=== PATIENT | female | born 1970 | race American Indian/Alaskan Native ===

== ENCOUNTER 2020-04-04 15:48 | Emergency (ER) | payer MEDICARE ==
[2020-04-04 16:07] VITALS: BP 143/101
--- NOTE | 2020-04-04 16:08 | Event Note ---
ED Screening Note ED Screening Note: Patient is a patient at [facility]. She comes in complaining of left lower extremity pain. She has a palpable DP pulse bilaterally. She states that [facility] will not allow her to wear her brace on her leg which she wears due to a prior CVA. They sent her here to be confirmed that she does not have a D VT. This initial assessment/diagnostic orders/clinical plan/treatment(s) is/are subject to change based on patients health status, clinical progression and re- assessment by fellow clinical providers in the ED. Further treatment and workup at subsequent clinical providers discretion. Patient/guardian urged not to elope from the ED as their condition may be serious if not clinically assessed and managed. Initial orders include: RO DVT
--- NOTE | 2020-04-04 17:00 | Vascular Lab Report ---
. DUPLEX DOPPLER LOWER EXTREMITY VEINS, LEFT INDICATION / CLINICAL INFORMATION: LLE PAIN. TECHNIQUE: Duplex doppler imaging was performed through the veins of the left lower extremity using venous compr ession and other maneuvers. COMPARISON: None available. FINDINGS: LEFT COMMON FEMORAL VEIN: Negative. LEFT FEMORAL VEIN: Negative. LEFT POPLITEAL VEIN: Negative. LEFT CALF VEINS: Negative. ADDITIONAL FINDINGS: None. IMPRESSION: 1. No sonographic evidence for DVT in the left lower extremity. Signer Name: Ryan Carl MD Signed: 04/04/2020 4:56 PM Workstation Name: [id number]
--- NOTE | 2020-04-04 17:18 | Emergency Department Report ---
ED Lower Extremity HPI - General Chief Complaint: Extremity Problem,Nontraumatic Stated Complaint: LT LEG DISCOMFORT Time Seen by Provider: 04/04/20 16:08 Source: patient Mode of arrival: Wheelchair Limitations: Physical Limitation - History of Present Illness Initial Comments: This is a 49-year-old female healthy who presents the ED complaining of left leg pain x1 week. Patient states that pain began about a week ago and got worse today. Patient states that she normally uses walking stick at home and is currently going through physical therapy with her doctor. Patient states that she has been staying at [facility] for about a month and has been unable to use her walking stick. Patient states that this may have been worsening her left leg pain. Patient states pain is localized to the left anterior aspect of her leg with no radiation. Patient rates pain a 7 out of 10 intensity at its worse. Patient states that she was sent in from [facility] to be evaluated for the left leg pain. Injury: Leg: Left Place: home Severity: moderate Severity scale (0 -10): 7 - Related Data Home Medications Medication Instructions Recorded Confirmed Last Taken Aspirin BABY CHEW TAB 81 mg PO DAILY 06/15/15 06/15/15 08/21/15 Levothyroxine 1 tab PO DAILY 06/15/15 06/15/15 08/21/15 Lexapro 1 tab PO DAILY 06/15/15 06/15/15 08/21/15 Lisinopril 1 tab PO DAILY 06/15/15 06/15/15 08/22/15 05:00 Lyrica 1 tab PO DAILY 06/15/15 06/15/15 08/21/15 Pravastatin 1 tab PO DAILY 06/15/15 06/15/15 08/21/15 Xanax TAB 1 tab PO DAILY 06/15/15 06/15/15 08/21/15 Wellbutrin SR 150 mg PO BID 08/22/15 08/22/15 08/21/15 Previous Rx's Medication Instructions Recorded Last Taken Type Paige Gandhi [Navin Gandhi] 75 mg PO BID #40 tablet 04/04/20 Unknown Rx Allergies Allergy/AdvReac Type Severity Reaction Status Date / Time No Known Allergies Allergy Verified 06/15/15 07:34 ED Review of Systems ROS: Stated complaint: LT LEG DISCOMFORT Other details as noted in HPI Comment: All other systems reviewed and negative ED Past Medical Hx - Past Medical History Hx Hypertension: Yes Hx GERD: Yes - Social History Smoking Status: Current Every Day Smoker - Medications Home Medications: Home Medications Medication Instructions Recorded Confirmed Last Taken Type Aspirin BABY CHEW TAB 81 mg PO DAILY 06/15/15 06/15/15 08/21/15 History Levothyroxine 1 tab PO DAILY 06/15/15 06/15/15 08/21/15 History Lexapro 1 tab PO DAILY 06/15/15 06/15/15 08/21/15 History Lisinopril 1 tab PO DAILY 06/15/15 06/15/15 08/22/15 05:00 History Lyrica 1 tab PO DAILY 06/15/15 06/15/15 08/21/15 History Pravastatin 1 tab PO DAILY 06/15/15 06/15/15 08/21/15 History Xanax TAB 1 tab PO DAILY 06/15/15 06/15/15 08/21/15 History Wellbutrin SR 150 mg PO BID 08/22/15 08/22/15 08/21/15 History Diclofenac [Navin Gandhi] 75 mg PO BID #40 tablet 04/04/20 Unknown Rx ED Physical Exam - General Limitations: Physical Limitation General appearance: alert, in no apparent distress - Head Head exam: Present: atraumatic, normocephalic - Eye Eye exam: Present: normal appearance - ENT ENT exam: Present: mucous membranes moist - Neck Neck exam: Present: normal inspection, full ROM - Respiratory Respiratory exam: Present: normal lung sounds bilaterally. Absent: respiratory distress - Cardiovascular Cardiovascular Exam: Present: regular rate, normal rhythm. Absent: systolic murmur, diastolic murmur, rubs, gallop - GI/Abdominal GI/Abdominal exam: Present: soft, normal bowel sounds - Extremities Exam Extremities exam: Present: normal inspection, full ROM, normal capillary refill. Absent: tenderness, pedal edema, joint swelling, calf tenderness - Expanded Lower Extremity Exam Left Knee exam: Present: full ROM. Absent: tenderness, swelling, abrasion Lower Leg exam: Present: normal inspection, full ROM. Absent: tenderness, swelling, abrasion, deformity, palpable cord, Micky's sign Ankle exam: Present: normal inspection, full ROM. Absent: tenderness, swelling, deformity Foot/Toe exam: Present: normal inspection, full ROM. Absent: tenderness, swelling, abrasion - Back Exam Back exam: Present: normal inspection - Neurological Exam Neurological exam: Present: alert, oriented X3 - Psychiatric Psychiatric exam: Present: normal affect, normal mood - Skin Skin exam: Present: warm, dry, intact, normal color. Absent: rash ED Course Vital Signs 04/04/20 16:04 Temperature 97.8 F Pulse Rate 83 Respiratory 20 Rate Blood Pressure 143/101 O2 Sat by Pulse 98 Oximetry ED Lower Extremity MDM - Radiology Data Radiology results: report reviewed, image reviewed . DUPLEX DOPPLER LOWER EXTREMITY VEINS, LEFT INDICATION / CLINICAL INFORMATION: LLE PAIN. TECHNIQUE: Duplex doppler imaging was performed through the veins of the left lower extremity using venous compression and other maneuvers. COMPARISON: None available. FINDINGS: LEFT COMMON FEMORAL VEIN: Negative. LEFT FEMORAL VEIN: Negative. LEFT POPLITEAL VEIN: Negative. LEFT CALF VEINS: Negative. ADDITIONAL FINDINGS: None. IMPRESSION: 1. No sonographic evidence for DVT in the left lower extremity. Signer Name: Michelle Rose MD Signed: 04/04/2020 4:56 PM Workstation Name: [id number] Transcribed By: JS Dictated By: MICHELLE ROSE MD Electronically Authenticated By: MICHELLE ROSE MD Signed Date/Time: 04/04/20 165 Doppler studies negative for DVT - Medical Decision Making 49-year-old female presents with leg pain most likely due to musculoskeletal strain/sprain Doppler studies was negative for DVT. Patient able to ambulate with mild limp on the left side. Evaluation shows no swelling, erythema or any other abnormalities as noted in note. Discussed with patient to follow-up with the physical therapist. Discussed with patient also referrals for neurologist. Discussed with patient if worsening pain she may return to the ED immediately. Patient understand instructions she is in no acute distress at this time. Critical care attestation.: If time is entered above; I have spent that time in minutes in the direct care of this critically ill patient, excluding procedure time. ED Disposition Clinical Impression: Muscle strain of left lower leg Disposition: DC-01 TO HOME OR SELFCARE Is pt being admited?: No Does the pt Need Aspirin: No Condition: Stable Instructions: Muscle Strain, Rann-if-Sejd, Hamstring Strain, How to Use Cold Therapy, Hamstring Strain Rehab-SportsMed Additional Instructions: Make sure to follow up with the primary care physician as discussed. Take all your medications as you've been prescribed. If you have any worsening symptoms or develop new symptoms please return to ED immediately. Prescriptions: Diclofenac [Navin Gandhi] 75 mg PO BID #40 tablet Referrals: RIK GLASGOW MD [Staff Physician] - 3-5 Days [facility] [Provider Group] - 3-5 Days [facility] [Provider Group] - 3-5 Days [facility] [Outside] - 3-5 Days Forms: Work/School Release Form(ED) Time of Disposition: 17:27
== END 2020-04-04 20:30 | disposition home or self-care (01) ==
LOC: ED 15:48
DX: S86.912A Strain of unspecified muscle(s) and tendon(s) at lower leg level, left leg, initial encounter (principal); I10 Essential (primary) hypertension; K21.9 Gastro-esophageal reflux disease without esophagitis; F17.200 Nicotine dependence, unspecified, uncomplicated; Z79.899 Other long term (current) drug therapy; X58.XXXA Exposure to other specified factors, initial encounter; Y93.89 Activity, other specified; Y92.009 Unspecified place in unspecified non-institutional (private) residence as the place of occurrence of the external cause; Y99.8 Other external cause status

== ENCOUNTER 2020-06-16 07:39 | Emergency (ER) | payer MEDICARE ==
--- NOTE | 2020-06-16 08:55 | Emergency Department Report ---
ED Fall HPI - General Chief Complaint: Extremity Injury, Lower Stated Complaint: RIGHT ANKLE PAIN Time Seen by Provider: 06/16/20 08:51 Source: patient, EMS Mode of arrival: Wheelchair - History of Present Illness Initial Comments: 50-year-old -[place] Citizen female presents to the emergency room complaining of right ankle injury. Patient states she fell down the stairs about 7 PM last night. States that she fell down about 7 stairs. She denies hitting her head no loss of consciousness no nausea no vomiting. Patient is taking nothing for pain. Patient states that she is sleepy secondary to her night medications of lorazepam Lyrica Xanax. She is followed by Dr. Lavon Castrejon. States she has an appointment today but trying to cancel it. Patient states that she put a ankle brace on her right ankle to help her ambulate. She states that when she tried to walk she noticed that she could not care for came to the ER to be evaluated. MD Complaint: fall Onset/Timin -: hour(s) Fall From: standing, down stairs (#) (7) Fall Witnessed: yes, by bystander Place Fall Occurred: home Loss of Consciousness: none Prolonged Down Time?: no Symptoms Prior to Fall: none Location - Extremities: Right: Ankle Severity scale (0 -10): 9 Quality: aching Associated Symptoms: denies - Related Data Home Medications Medication Instructions Recorded Confirmed Last Taken Aspirin BABY CHEW TAB 81 mg PO DAILY 06/15/15 06/15/15 08/21/15 Levothyroxine 1 tab PO DAILY 06/15/15 06/15/15 08/21/15 Lexapro 1 tab PO DAILY 06/15/15 06/15/15 08/21/15 Lisinopril 1 tab PO DAILY 06/15/15 06/15/15 08/22/15 05:00 Lyrica 1 tab PO DAILY 06/15/15 06/15/15 08/21/15 Pravastatin 1 tab PO DAILY 06/15/15 06/15/15 08/21/15 Xanax TAB 1 tab PO DAILY 06/15/15 06/15/15 08/21/15 Wellbutrin SR 150 mg PO BID 08/22/15 08/22/15 08/21/15 Previous Rx's Medication Instructions Recorded Last Taken Type Paige Gandhi [Navin Gandhi] 75 mg PO BID #40 tablet 04/04/20 Unknown Rx traMADoL [Ultram 50 MG tab] 50 mg PO Q6HR PRN #12 tablet 06/16/20 Unknown Rx Allergies Allergy/AdvReac Type Severity Reaction Status Date / Time No Known Allergies Allergy Verified 06/15/15 07:34 ED Review of Systems ROS: Stated complaint: RIGHT ANKLE PAIN Other details as noted in HPI Comment: All other systems reviewed and negative ED Past Medical Hx - Past Medical History Previous Medical History?: Yes Hx Hypertension: Yes Hx CVA: Yes (left sided deficit) Hx GERD: Yes - Social History Smoking Status: Current Every Day Smoker - Medications Home Medications: Home Medications Medication Instructions Recorded Confirmed Last Taken Type Aspirin BABY CHEW TAB 81 mg PO DAILY 06/15/15 06/15/15 08/21/15 History Levothyroxine 1 tab PO DAILY 06/15/15 06/15/15 08/21/15 History Lexapro 1 tab PO DAILY 06/15/15 06/15/15 08/21/15 History Lisinopril 1 tab PO DAILY 06/15/15 06/15/15 08/22/15 05:00 History Lyrica 1 tab PO DAILY 06/15/15 06/15/15 08/21/15 History Pravastatin 1 tab PO DAILY 06/15/15 06/15/15 08/21/15 History Xanax TAB 1 tab PO DAILY 06/15/15 06/15/15 08/21/15 History Wellbutrin SR 150 mg PO BID 08/22/15 08/22/15 08/21/[address] [Navin Gandhi] 75 mg PO BID #40 tablet 04/04/20 Unknown Rx traMADoL [Ultram 50 MG tab] 50 mg PO Q6HR PRN #12 tablet 06/16/20 Unknown Rx ED Physical Exam - General Limitations: Physical Limitation General appearance: alert, appears intoxicated - Head Head exam: Present: atraumatic, normocephalic - Eye Eye exam: Present: normal appearance - ENT ENT exam: Present: mucous membranes moist - Neck Neck exam: Present: normal inspection, full ROM - Respiratory Respiratory exam: Absent: accessory muscle use - Expanded Lower Extremity Exam Right Upper Leg exam: Present: normal inspection, full ROM Knee exam: Present: normal inspection, full ROM Lower Leg exam: Present: normal inspection, full ROM Ankle exam: Present: tenderness Foot/Toe exam: Present: tenderness, swelling Neuro vascular tendon exam: Present: no vascular compromise - Back Exam Back exam: Present: normal inspection, full ROM - Neurological Exam Neurological exam: Present: alert, oriented X3 - Psychiatric Psychiatric exam: Present: normal affect, normal mood - Skin Skin exam: Present: warm, dry, intact, normal color. Absent: rash ED Course Vital Signs 06/16/20 07:48 Temperature 98.6 F Pulse Rate 86 Respiratory 17 Rate Blood Pressure 120/86 [Right] O2 Sat by Pulse 100 Oximetry ED Medical Decision Making - Medical Decision Making 50-year-old -[place] Citizen female presents to the emergency room complaining of right ankle injury. Patient states she fell down the stairs about 7 PM last night. States that she fell down about 7 stairs. She denies hitting her head no loss of consciousness no nausea no vomiting. Patient is taking nothing for pain. Patient states that she is sleepy secondary to her night medications of lorazepam Lyrica Xanax. She is followed by Dr. Lavon Castrejon. States she has an appointment today but trying to cancel it. Patient states that she put a ankle brace on her right ankle to help her ambulate. She states that when she tried to walk she noticed that she could not care for came to the ER to be evaluated. Radiologist reports suspected calcaneus fracture of the right lower extremity. Patient be placed in a posterior splint. Nursing staff states that patient is not able to bear weight as she has had a stroke affecting her left side and now she has a right lower extremity fracture. Patient will need to be transported via EMS home. Critical care attestation.: If time is entered above; I have spent that time in minutes in the direct care of this critically ill patient, excluding procedure time. ED Disposition Clinical Impression: Right calcaneal fracture, Fall Disposition: DC- TO HOME OR SELFCARE Is pt being admited?: No Does the pt Need Aspirin: No Condition: Stable Additional Instructions: X-ray of right foot shows a calcaneus fracture which is the heel of your foot. Is very important you keep the splint on and follow-up with orthopedic in the next 5 to 7 days. Pain medication as needed. Be sure to eat and drink when taking medication. Prescriptions: traMADoL [Ultram 50 MG tab] 50 mg PO Q6HR PRN #12 tablet PRN Reason: Pain Referrals: PRIMARY CAREMD [Primary Care Provider] - 3-5 Days SRINATH VALENTE MD [Staff Physician] - 3-5 Days Time of Disposition: 17:00
[2020-06-16] MEDS ORDERED: IBUPROFEN 600 MG TAB PO ONE (09:01)
--- NOTE | 2020-06-16 09:46 | XRay Report ---
RIGHT ANKLE 2 VIEWS INDICATION / CLINICAL INFORMATION: Right ankle injury after fall. COMPARISON: None available. FINDINGS: Lack of a complete right ankle series with bilateral oblique views limits this evaluation. BONES and JOINT(S): There is a probable acute nondisplaced fracture of the lateral malleolus without evidence of disruption of the ankle joint. A probable osteochondroma is seen arising posteriorly/late rally along the distal tibial shaft. SOFT TISSUES: Mild edema is present anteriorly and laterally. ADDITIONAL FINDINGS: None. IMPRESSION: Limited exam demonstrating a probable acute fracture of the distal fibula. A complete right ankle ser ies would be helpful for further evaluation. Signer Name: Ritchie Mcdermott MD Signed: 06/16/2020 9:42 AM Workstation Name: [id number]
--- NOTE | 2020-06-16 11:13 | XRay Report ---
LEFT ANKLE 3 VIEWS INDICATION / CLINICAL INFORMATION: Left ankle injury after fall. COMPARISON: Limited left ankle series performed earlier today. FINDINGS: BONES and JOINT(S): No acute fracture or subluxation. A previously suspected fracture of the distal f ibula actually represents changes of remote trauma. Osteochondromas are seen arising from the lateral aspect of the distal tibia. SOFT TISSUES: Mild edema is present along the anterior/lateral aspect of the ankle. ADDITIONAL FINDINGS: None. IMPRESSION: 1. Mild left ankle edema without an acute osseous abnormality. 2. Additional findings as above. Signer Name: Ritchie Mcdermott MD Signed: 06/16/2020 10:46 AM Workstation Name: [id number]
--- NOTE | 2020-06-16 13:15 | XRay Report ---
XR ankle 3+V RT INDICATION / CLINICAL INFORMATION: Ankle trauma. COMPARISON: None available. FINDINGS: BONES/JOINT(S): There is a suspected nondisplaced fracture through the tip of the anterior process of the calcaneus. Chronic bone formation in the distal tibiofibular articulation is likely due to remot e prior high ankle sprain. No fibular fracture is seen. SOFT TISSUES: No significant abnormality. ADDITIONAL FINDINGS: None. Signer Name: Bakari Luna MD Signed: 06/16/2020 1:10 PM Workstation Name: [id number]
[2020-06-16 21:36] VITALS: BP 108/76
== END 2020-06-16 21:35 | disposition home or self-care (01) ==
LOC: ED 07:39
DX: S92.024A Nondisplaced fracture of anterior process of right calcaneus, initial encounter for closed fracture (principal); I10 Essential (primary) hypertension; K21.9 Gastro-esophageal reflux disease without esophagitis; F17.200 Nicotine dependence, unspecified, uncomplicated; Z86.73 Personal history of transient ischemic attack (TIA), and cerebral infarction without residual deficits; Z79.899 Other long term (current) drug therapy; W10.9XXA Fall (on) (from) unspecified stairs and steps, initial encounter; Y93.89 Activity, other specified; Y92.009 Unspecified place in unspecified non-institutional (private) residence as the place of occurrence of the external cause; Y99.8 Other external cause status

== ENCOUNTER 2020-08-09 14:19 | Emergency (ER) | payer MEDICARE ==
--- NOTE | 2020-08-09 14:50 | Event Note ---
ED Screening Note Date of service: 08/09/20 Time: 14:47 ED Screening Note: 50 y/o female pt w/ hx of CVA (residual left-sided deficits) and cocaine use presents to ED w/ via EMS w/ complaints of left-sided chest pain and left-sided back pain. Pt reportedly told EMS she was using cocaine last night when she fell onto her left side. No head injury or LOC reported. General: Awake, appropriately interactive. No acute distress. Neck: Supple. Full range of motion intact. Cardiovascular: Normal peripheral perfusion. Pulmonary: No respiratory distress. Patient is speaking normally without use of accessory muscles. Skin: No apparent rashes or lesions. Neurological: No facial asymmetry. Speech is clear. Follows commands. Patient is alert and oriented. Musculoskeletal: Moves all four extremities spontaneously with normal range of motion. Psych: Cooperative. Appropriately interactive. I have greeted and performed a focused rapid initial assessment of this patient. A comprehensive ED assessment and evaluation of the patient, analysis of all test results, and completion of the medical decision-making process will be conducted by additional ED providers. This initial assessment/diagnostic orders/clinical plan/treatment(s) is/are subject to change based on patients health status, clinical progression and re-assessment. Further treatment and workup at subsequent clinical provider's discretion. Patient/guardian urged not to elope from the ED as their condition may be serious if not clinically assessed and managed
--- NOTE | 2020-08-09 15:27 | XRay Report ---
CHEST 2 VIEWS INDICATION: chest pain. COMPARISON: None FINDINGS: Support devices: None. Heart: Within normal limits. Lungs/pleura: Small to medium left pleural effusion and left basilar opacity are identified. The luana aaron of the lungs are clear. A small left apical pneumothorax measures 1.9 cm in thickness. Additional findings: None. IMPRESSION: Left pleural effusion. Infiltrate or atelectasis at the left lung base. Small left apical pneumothora x as described. CRITICAL RESULT: Time of Discovery (MAJOR GIFTS OFFICER/CDT): 1420 hours Time of Communication (MAJOR GIFTS OFFICER/CDT): 1421 hours Licensed Practitioner Receiving Report: XI Mays Read-Back Performed: Yes. Signer Name: Salas Milan Jr, MD Signed: 08/09/2020 3:23 PM Workstation Name: [id number]
[2020-08-09 16:04] LABS: Basophils % (Auto) 0.5 % (0.0-1.8); Eosinophils # (Auto) 0.2 K/mm3 (0.0-0.4); Eosinophils % (Auto) 3.3 % (0.0-4.3); Hematocrit 39.5 % (30.3-42.9); Hemoglobin 13.1 gm/dl (10.1-14.3); Lymphocytes % (Auto) 28.3 % (13.4-35.0); Mean Corpuscular HGB Conc 33 % (30-34); Mean Corpuscular Volume 92 fl (79-97); Monocytes # (Auto) 0.4 K/mm3 (0.0-0.8); Monocytes % (Auto) 6.1 % (0.0-7.3); Red Blood Count 4.28 M/mm3 (3.65-5.03); Red Cell Distribution Width 14.2 % (13.2-15.2)
[2020-08-09 16:14] LABS: Platelet Count 193 K/mm3 (140-440)
[2020-08-09 16:15] LABS: INR 0.87 (0.87-1.13)
[2020-08-09 16:16] LABS: Partial Thromboplastin Time 24.7 Sec. (24.2-36.6)
[2020-08-09 16:27] LABS: Alanine Aminotransferase 6 units/L (7-56); Albumin 3.9 g/dL (3.9-5); Blood Urea Nitrogen 10 mg/dL (7-17); Calcium 8.9 mg/dL (8.4-10.2); Hemolysis Index 11
[2020-08-09 16:28] LABS: BUN/Creatinine Ratio 20
--- NOTE | 2020-08-09 17:28 | Cat Scan Report ---
CT CHEST WITHOUT CONTRAST INDICATION / CLINICAL INFORMATION: pneumothorax/ possible pulmonary contusion. TECHNIQUE: Axial CT images were obtained through the chest without contrast. All CT scans at this location are p erformed using CT dose reduction for ALARA by means of automated exposure control. COMPARISON: Chest radiograph 08/09/2020 FINDINGS: NECK BASE: No significant abnormality. HEART: No significant abnormality. THORACIC AORTA: No significant abnormality. MEDIASTINUM and STACI: No significant abnormality. LUNGS/AIRWAYS: Partial volume loss of the left lower lobe. Mild subsegmental atelectasis in the right lower lobe. PLEURA: Medium-sized left pleural effusion. Soqzr-[id number]-axuas left pneumothorax. UPPER ABDOMEN: 3 cm right simple renal cyst. CHEST WALL: Mildly enlarged left axillary lymph node measuring up to 1.5 cm in short axis dimension. Small left chest wall contusion adjacent to the lateral rib fractures, no large hematoma. SKELETAL SYSTEM: Acute, nondisplaced rib fractures involving the the anterolateral left sixth and sev enth ribs, and possibly the fifth. IMPRESSION: 1. [id number]-kvkwl left pneumothorax with a medium-sized left pleural effusion and partial volume loss throughout the left lung. 2. Acute, nondisplaced rib fractures involving the anterolateral left sixth and seventh ribs, and pos sibly the fifth. Small adjacent left chest wall contusion. Signer Name: Yomi Bundy MD Signed: 08/09/2020 5:23 PM Workstation Name: [id number]
[2020-08-09] MEDS ORDERED: MORPHINE 4 MG/1 ML INJ IV ONE (17:39)
[2020-08-09] MEDS ORDERED: ONDANSETRON 4 MG/2 ML INJ IV ONE (17:39)
--- NOTE | 2020-08-09 18:08 | Emergency Department Report ---
ED General Adult HPI - General Chief complaint: Chest Pain Stated complaint: CHEST PAIN, SOFIA Time Seen by Provider: 08/09/20 15:28 Source: patient Mode of arrival: Wheelchair Limitations: Physical Limitation - History of Present Illness Initial comments: Patient presents to the emergency department status post a fall at 11 AM. Patient states that she has left-sided weakness from prior stroke and fell this morning due to the weakness on the left side. Patient states that she injured her left ankle and right foot when she fell. Patient states that she also had a spasm on the left side which is consistent with sequelae from her previous CVA. Patient states she also fell on Friday and went to [facility] for evaluation. Patient states since that time she had left-sided chest pain with shortness of breath. -: Sudden Location: chest, lower extremity Radiation: non-radiation Severity scale (0 -10): 7 Quality: sharp Consistency: constant Improves with: rest Worsens with: movement Associated Symptoms: denies other symptoms Treatments Prior to Arrival: none - Related Data Home Medications Medication Instructions Recorded Confirmed Last Taken Aspirin BABY CHEW TAB 81 mg PO DAILY 06/15/15 06/15/15 08/21/15 Levothyroxine 1 tab PO DAILY 06/15/15 06/15/15 08/21/15 Lexapro 1 tab PO DAILY 06/15/15 06/15/15 08/21/15 Lisinopril 1 tab PO DAILY 06/15/15 06/15/15 08/22/15 05:00 Lyrica 1 tab PO DAILY 06/15/15 06/15/15 08/21/15 Pravastatin 1 tab PO DAILY 06/15/15 06/15/15 08/21/15 Xanax TAB 1 tab PO DAILY 06/15/15 06/15/15 08/21/15 Wellbutrin SR 150 mg PO BID 08/22/15 08/22/15 08/21/15 Previous Rx's Medication Instructions Recorded Last Taken Type Diclofenac [Navin Gandhi] 75 mg PO BID #40 tablet 04/04/20 Unknown Rx traMADoL [Ultram 50 MG tab] 50 mg PO Q6HR PRN #12 tablet 06/16/20 Unknown Rx Allergies Allergy/AdvReac Type Severity Reaction Status Date / Time No Known Allergies Allergy Verified 06/15/15 07:34 ED Review of Systems ROS: Stated complaint: CHEST PAIN, SOFIA Other details as noted in HPI Comment: All other systems reviewed and negative Constitutional: denies: chills, fever Eyes: denies: eye pain, eye discharge, vision change ENT: denies: ear pain, throat pain Respiratory: shortness of breath. denies: cough, wheezing Cardiovascular: chest pain. denies: palpitations Endocrine: no symptoms reported Gastrointestinal: denies: abdominal pain, nausea, diarrhea Genitourinary: denies: urgency, dysuria, discharge Musculoskeletal: denies: back pain, joint swelling, arthralgia Skin: denies: rash, lesions Neurological: denies: headache, weakness, paresthesias Psychiatric: denies: anxiety, depression Hematological/Lymphatic: denies: easy bleeding, easy bruising ED Past Medical Hx - Past Medical History Previous Medical History?: Yes Hx Hypertension: Yes Hx CVA: Yes (left sided deficit) Hx GERD: Yes - Social History Smoking Status: Current Every Day Smoker - Medications Home Medications: Home Medications Medication Instructions Recorded Confirmed Last Taken Type Aspirin BABY CHEW TAB 81 mg PO DAILY 06/15/15 06/15/15 08/21/15 History Levothyroxine 1 tab PO DAILY 06/15/15 06/15/15 08/21/15 History Lexapro 1 tab PO DAILY 06/15/15 06/15/15 08/21/15 History Lisinopril 1 tab PO DAILY 06/15/15 06/15/15 08/22/15 05:00 History Lyrica 1 tab PO DAILY 06/15/15 06/15/15 08/21/15 History Pravastatin 1 tab PO DAILY 06/15/15 06/15/15 08/21/15 History Xanax TAB 1 tab PO DAILY 06/15/15 06/15/15 08/21/15 History Wellbutrin SR 150 mg PO BID 08/22/15 08/22/15 08/21/[address] [Navin Gandhi] 75 mg PO BID #40 tablet 04/04/20 Unknown Rx traMADoL [Ultram 50 MG tab] 50 mg PO Q6HR PRN #12 tablet 06/16/20 Unknown Rx ED Physical Exam - General Limitations: Physical Limitation General appearance: alert, in no apparent distress - Head Head exam: Present: atraumatic, normocephalic - Eye Eye exam: Present: normal appearance - ENT ENT exam: Present: mucous membranes moist - Neck Neck exam: Present: normal inspection - Respiratory Respiratory exam: Present: normal lung sounds bilaterally, decreased breath sounds (Decrease breath sounds left side), other (Tenderness palpation of ribs 4, 7, 8 left side ). Absent: respiratory distress - Cardiovascular Cardiovascular Exam: Present: regular rate, normal rhythm. Absent: systolic murmur, diastolic murmur, rubs, gallop - GI/Abdominal GI/Abdominal exam: Present: soft, normal bowel sounds. Absent: distended, tenderness - Extremities Exam Extremities exam: Present: normal inspection - Back Exam Back exam: Present: normal inspection - Neurological Exam Neurological exam: Present: alert, oriented X3 - Psychiatric Psychiatric exam: Present: normal affect, normal mood - Skin Skin exam: Present: warm, dry, intact, normal color. Absent: rash ED Course Vital Signs 08/09/20 08/09/20 08/09/20 14:38 16:05 16:31 Temperature 98.7 F Pulse Rate 92 H 69 Respiratory 18 16 Rate Blood Pressure 142/95 150/108 O2 Sat by Pulse 99 97 97 Oximetry 08/09/20 08/09/20 17:31 18:01 Temperature Pulse Rate 62 Respiratory 17 Rate Blood Pressure 141/97 154/109 O2 Sat by Pulse 97 100 Oximetry ED Medical Decision Making - Lab Data Result diagrams: 08/09/20 15:16 08/09/20 15:16 Lab Results 08/09/20 08/09/20 08/09/20 Range/Units 15:16 15:16 15:16 WBC 6.9 (4.5-11.0) K/mm3 RBC 4.28 (3.65-5.03) M/mm3 Hgb 13.1 (10.1-14.3) gm/dl Hct 39.5 (30.3-42.9) % MCV 92 (79-97) fl MCH 31 (28-32) pg MCHC 33 (30-34) % RDW 14.2 (13.2-15.2) % Plt Count 193 (140-440) K/mm3 Lymph % (Auto) 28.3 (13.4-35.0) % [place] % (Auto) 6.1 (0.0-7.3) % Eos % (Auto) 3.3 (0.0-4.3) % Baso % (Auto) 0.5 (0.0-1.8) % Lymph # (Auto) 2.0 (1.2-5.4) K/mm3 [place] # (Auto) 0.4 (0.0-0.8) K/mm3 Eos # (Auto) 0.2 (0.0-0.4) K/mm3 Baso # (Auto) 0.0 (0.0-0.1) K/mm3 Seg Neutrophils % 61.8 (40.0-70.0) % Seg Neutrophils # 4.3 (1.8-7.7) K/mm3 PT 12.4 (12.2-14.9) Sec. INR 0.87 (0.87-1.13) APTT 24.7 (24.2-36.6) Sec. Sodium 141 (137-145) mmol/L Potassium 3.5 L (3.6-5.0) mmol/L Chloride 104.4 (98-107) mmol/L Carbon Dioxide 26 (22-30) mmol/L Anion Gap 14 mmol/L BUN 10 (7-17) mg/dL Creatinine 0.5 L (0.6-1.2) mg/dL Estimated GFR > 60 ml/min BUN/Creatinine Ratio 20 % Glucose 89 (65-100) mg/dL Calcium 8.9 (8.4-10.2) mg/dL Magnesium 1.90 (1.7-2.3) mg/dL Total Bilirubin 0.30 (0.1-1.2) mg/dL AST 11 (5-40) units/L ALT 6 L (7-56) units/L Alkaline Phosphatase 69 (35-129) units/L Troponin T < 0.010 (0.00-0.029) ng/mL Total Protein 7.4 (6.3-8.2) g/dL Albumin 3.9 (3.9-5) g/dL Albumin/Globulin Ratio 1.1 % Urine Opiates Screen Urine Methadone Screen Ur Barbiturates Screen Ur Phencyclidine Scrn Ur Amphetamines Screen U Benzodiazepines Scrn Urine Cocaine Screen U Marijuana (THC) Screen Drugs of Abuse Note 08/09/20 Range/Units Unknown WBC (4.5-11.0) K/mm3 RBC (3.65-5.03) M/mm3 Hgb (10.1-14.3) gm/dl Hct (30.3-42.9) % MCV (79-97) fl MCH (28-32) pg MCHC (30-34) % RDW (13.2-15.2) % Plt Count (140-440) K/mm3 Lymph % (Auto) (13.4-35.0) % [place] % (Auto) (0.0-7.3) % Eos % (Auto) (0.0-4.3) % Baso % (Auto) (0.0-1.8) % Lymph # (Auto) (1.2-5.4) K/mm3 [place] # (Auto) (0.0-0.8) K/mm3 Eos # (Auto) (0.0-0.4) K/mm3 Baso # (Auto) (0.0-0.1) K/mm3 Seg Neutrophils % (40.0-70.0) % Seg Neutrophils # (1.8-7.7) K/mm3 PT (12.2-14.9) Sec. INR (0.87-1.13) APTT (24.2-36.6) Sec. Sodium (137-145) mmol/L Potassium (3.6-5.0) mmol/L Chloride (98-107) mmol/L Carbon Dioxide (22-30) mmol/L Anion Gap mmol/L BUN (7-17) mg/dL Creatinine (0.6-1.2) mg/dL Estimated GFR ml/min BUN/Creatinine Ratio % Glucose (65-100) mg/dL Calcium (8.4-10.2) mg/dL Magnesium (1.7-2.3) mg/dL Total Bilirubin (0.1-1.2) mg/dL AST (5-40) units/L ALT (7-56) units/L Alkaline Phosphatase (35-129) units/L Troponin T (0.00-0.029) ng/mL Total Protein (6.3-8.2) g/dL Albumin (3.9-5) g/dL Albumin/Globulin Ratio % Urine Opiates Screen Negative Urine Methadone Screen Negative Ur Barbiturates Screen Negative Ur Phencyclidine Scrn Negative Ur Amphetamines Screen Negative U Benzodiazepines Scrn Positive Urine Cocaine Screen Negative U Marijuana (THC) Screen Positive Drugs of Abuse Note Disclamer - Radiology Data Radiology results: report reviewed - Medical Decision Making Discussed results with patient Due to the patient's injuries [facility] was contacted and the patient was excepted by Dr. Welsh at 8:44 PM Due to the patient having a small pneumothorax she was placed on O2 Critical Care Time: Yes Critical care time in (mins) excluding proc time.: 35 Critical care attestation.: If time is entered above; I have spent that time in minutes in the direct care of this critically ill patient, excluding procedure time. ED Disposition Clinical Impression: Pneumothorax on left, Pleural effusion, Multiple rib fractures Disposition: DC/TX-70 ANOTHER TYPE HLTHCARE Is pt being admited?: No Does the pt Need Aspirin: No Condition: Stable Referrals: PRIMARY CARE, [Primary Care Provider] - 3-5 Days
[2020-08-09 18:35] LABS: Amphetamine Screen,Urine Negative; Cocaine Screen,Urine Negative; Methadone Screen,Urine Negative; Opiate Screen,Urine Negative
[2020-08-09 18:46] LABS: Benzodiazepines Screen,Urine Positive; Cannabinoid Screen,Urine Positive
[2020-08-09] MEDS ORDERED: HYDROmorphone 1 MG/1 ML INJ IV ONE (19:21)
--- NOTE | 2020-08-09 19:32 | Cat Scan Report ---
. CT head/brain wo con INDICATION / CLINICAL INFORMATION: 50 years Female; trauma/fall. TECHNIQUE: Routine CT head without contrast. All CT scans at this location are performed using CT dos e reduction for ALARA by means of automated exposure control. Motion artifact. COMPARISON: None. FINDINGS: BRAIN / INTRACRANIAL CONTENTS: Old, branch MCA infarct seen on the right. There is atrophic dilatatio n of the right lateral ventricle. It might be difficult to evaluate for small areas of vandana-infarct i schemia without diffusion imaging by MRI. Otherwise, no acute hemorrhage, mass effect, midline shift, hydrocephalus, or acute, large territoria l infarct. No signs of significant atrophy or chronic infarct. No other significant white matter abno rmality seen. CRANIOCERVICAL JUNCTION: No significant abnormality. ORBITS: No significant abnormality of visualized orbits. SINUSES / MASTOIDS: Visualized paranasal sinuses and mastoid air cells are essentially clear. ADDITIONAL FINDINGS: None. IMPRESSION: 1. No focal mass, hemorrhage, hydrocephalus, or acute, large territorial infarct. Signer Name: Rusty Figueroa MD, III Signed: 08/09/2020 7:27 PM Workstation Name: [email or web address] [id number]
--- NOTE | 2020-08-09 19:36 | XRay Report ---
LEFT FOOT 2 VIEW(S) INDICATION / CLINICAL INFORMATION: Left foot pain after fall COMPARISON: None available. FINDINGS: BONES / JOINT(S): Acute mildly displaced oblique fracture distal fifth metatarsal shaft neck junction . No significant arthritis. SOFT TISSUES: No significant abnormality. ADDITIONAL FINDINGS: None. Signer Name: Popeye Donis MD Signed: 08/09/2020 7:31 PM Workstation Name: [email or web address]
--- NOTE | 2020-08-09 19:37 | XRay Report ---
LEFT ANKLE 2 VIEW(S) INDICATION / CLINICAL INFORMATION: Left ankle pain after fall COMPARISON: None available. FINDINGS: BONES / JOINT(S): No acute ankle fracture or subluxation. No significant arthritis. SOFT TISSUES: Moderate lateral ankle soft tissue swelling ADDITIONAL FINDINGS: There is oblique fracture distal fifth metatarsal. Signer Name: Popeye Donis MD Signed: 08/09/2020 7:32 PM Workstation Name: [email or web address]
--- NOTE | 2020-08-09 19:44 | Cat Scan Report ---
CT CERVICAL SPINE WITHOUT CONTRAST INDICATION: trauma/fall. Neck pain TECHNIQUE: All CT scans at this location are performed using CT dose reduction for ALARA by means of automated e xposure control. Axial CT images were obtained through the cervical spine. Sagittal and coronal reformatted images we re produced. COMPARISON: None available. FINDINGS: Fracture: None. Subluxation: None. Spinal canal: No significant compromise. Disc spaces: Normal. Facet joints: Normal. Paraspinal soft tissues: No soft tissue swelling. Normal. Additional findings: None. Lung apices: Tiny left pneumothorax. IMPRESSION: 1. No fracture cervical spine 2. Tiny left apical pneumothorax described on earlier chest CT today Signer Name: Popeye Donis MD Signed: 08/09/2020 7:40 PM Workstation Name: [email or web address]
[2020-08-09 22:37] VITALS: BP 163/100
--- NOTE | 2020-08-11 09:56 | Electrocardiograph Report ---
[facility] Test Date: 2020-08-09 Test Time: 14:32:28 Pat Name: JORGE LUIS MOYA Department: Room: Gender: F [employer] Developer: RUBIA : 1970 Requested By: HEMANT NICOLE Order Number: [id number] Reading MD: Og Davis Measurements Intervals [place] Rate: 89 P: 54 IL: 173 QRS: 18 QRSD: 81 T: 21 QT: 383 QTc: 467 Interpretive Statements Sinus rhythm Consider left ventricular hypertrophy No previous ECG available for comparison Electronically Signed On 08-11-2020 9:56:14 EDT by Og Davis
== END 2020-08-09 22:30 | disposition other institution (70) ==
LOC: ED 14:19
DX: S22.42XA Multiple fractures of ribs, left side, initial encounter for closed fracture (principal); J93.9 Pneumothorax, unspecified; J90 Pleural effusion, not elsewhere classified; M25.572 Pain in left ankle and joints of left foot; I10 Essential (primary) hypertension; K21.9 Gastro-esophageal reflux disease without esophagitis; F17.200 Nicotine dependence, unspecified, uncomplicated; Z86.73 Personal history of transient ischemic attack (TIA), and cerebral infarction without residual deficits; Z79.899 Other long term (current) drug therapy; W19.XXXA Unspecified fall, initial encounter; Y93.89 Activity, other specified; Y92.89 Other specified places as the place of occurrence of the external cause; Y99.8 Other external cause status
CPT/HCPCS: 36415; 70450; 71046; 71250; 72125; 73600; 73620; 80053; 80307; 83735; 84484; 85025; 85610; 85730; 93005; 96374; 96375; 99291; J1170; J2270; J2405

== ENCOUNTER 2020-10-20 13:00 | Emergency (ER) | payer MEDICARE ==
[2020-10-20 14:41] VITALS: BP 165/117
--- NOTE | 2020-10-20 15:14 | Emergency Department Report ---
ED Fall HPI - General Chief Complaint: Fall Stated Complaint: INJURY TO RT HAND AND FOOT Time Seen by Provider: 10/20/20 15:11 Source: patient, EMS Mode of arrival: Wheelchair - History of Present Illness Initial Comments: 50-year-old female presents via EMS to the ER for evaluation after an accidental fall at home. 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 She states that she was walking up the steps in her house, and at the same time carrying a basket of dirty clothes in her right hand. She reports that she usually walks with a cane to help with her balance, but she did not have anything to help her balance was walking up the steps and therefore while walking up the steps lost her balance and fell backwards. She states that she slid down about 5 steps. She states that she did hit her head, felt a little dizzy after hitting her head but there was no loss of consciousness. She mainly complains of pain to her left ribs, left elbow, left shoulder and right great toe. She denies any apparent bruising or swelling. She denies any headache, dizziness, nausea, vomiting, neck pain, back pain or any additional symptoms at this time. She states that she is supposed to be on aspirin for her stroke, but she states she has not taken it in over 30 days. She states that she is not on any other blood thinners. Complaint: fall -: Sudden, This afternoon - Related Data Home Medications Medication Instructions Recorded Confirmed Last Taken Aspirin BABY CHEW TAB 81 mg PO DAILY 06/15/15 06/15/15 08/21/15 Levothyroxine 1 tab PO DAILY 06/15/15 06/15/15 08/21/15 Lexapro 1 tab PO DAILY 06/15/15 06/15/15 08/21/15 Lisinopril 1 tab PO DAILY 06/15/15 06/15/15 08/22/15 05:00 Lyrica 1 tab PO DAILY 06/15/15 06/15/15 08/21/15 Pravastatin 1 tab PO DAILY 06/15/15 06/15/15 08/21/15 Xanax TAB 1 tab PO DAILY 06/15/15 06/15/15 08/21/15 Wellbutrin SR 150 mg PO BID 08/22/15 08/22/15 08/21/15 Previous Rx's Medication Instructions Recorded Last Taken Type Diclofenac Dr [Navin Gandhi] 75 mg PO BID #40 tablet 04/04/20 Unknown Rx traMADoL [Ultram 50 MG tab] 50 mg PO Q6HR PRN #12 tablet 06/16/20 Unknown Rx Acetaminophen [Acetaminophen 8 650 mg PO Q8HR #30 tablet.er 10/20/20 Unknown Rx Hour] Baclofen 5 mg PO TID #20 tablet 10/20/20 Unknown Rx Allergies Allergy/AdvReac Type Severity Reaction Status Date / Time No Known Allergies Allergy Verified 06/15/15 07:34 ED Review of Systems ROS: Stated complaint: INJURY TO RT HAND AND FOOT Other details as noted in HPI Comment: All other systems reviewed and negative Constitutional: denies: chills, fever, malaise Eyes: denies: eye pain, eye discharge, vision change ENT: denies: ear pain, throat pain, dental pain, hearing loss, epistaxis, congestion Respiratory: denies: cough, shortness of breath, SOB with exertion, SOB at rest, wheezing Cardiovascular: other (Left rib pain). denies: chest pain, palpitations Gastrointestinal: denies: abdominal pain, nausea, diarrhea, constipation, hematemesis Musculoskeletal: arthralgia, other (Left shoulder pain, left elbow pain, right great toe pain). denies: back pain, joint swelling Skin: denies: rash, lesions Neurological: abnormal gait (Chronically secondary to a CVA). denies: headache, confusion Psychiatric: denies: anxiety, depression, auditory hallucinations, visual hallucinations, homicidal thoughts, suicidal thoughts Hematological/Lymphatic: denies: easy bleeding, easy bruising ED Past Medical Hx - Past Medical History Previous Medical History?: Yes Hx Hypertension: Yes Hx CVA: Yes (left sided deficit) Hx GERD: Yes - Social History Smoking Status: Current Every Day Smoker - Medications Home Medications: Home Medications Medication Instructions Recorded Confirmed Last Taken Type Aspirin BABY CHEW TAB 81 mg PO DAILY 06/15/15 06/15/15 08/21/15 History Levothyroxine 1 tab PO DAILY 06/15/15 06/15/15 08/21/15 History Lexapro 1 tab PO DAILY 06/15/15 06/15/15 08/21/15 History Lisinopril 1 tab PO DAILY 06/15/15 06/15/15 08/22/15 05:00 History Lyrica 1 tab PO DAILY 06/15/15 06/15/15 08/21/15 History Pravastatin 1 tab PO DAILY 06/15/15 06/15/15 08/21/15 History Xanax TAB 1 tab PO DAILY 06/15/15 06/15/15 08/21/15 History Wellbutrin SR 150 mg PO BID 08/22/15 08/22/15 08/21/15 History Diclofenac [Navin Gandhi] 75 mg PO BID #40 tablet 04/04/20 Unknown Rx traMADoL [Ultram 50 MG tab] 50 mg PO Q6HR PRN #12 tablet 06/16/20 Unknown Rx Acetaminophen [Acetaminophen 8 650 mg PO Q8HR #30 tablet.er 10/20/20 Unknown Rx Hour] Baclofen 5 mg PO TID #20 tablet 10/20/20 Unknown Rx ED Physical Exam - General Limitations: No Limitations General appearance: alert, in no apparent distress - Head Head exam: Present: atraumatic, normocephalic, normal inspection - Eye Eye exam: Present: normal appearance, PERRL, EOMI Pupils: Present: normal accommodation - ENT ENT exam: Present: TM's normal bilaterally - Neck Neck exam: Present: normal inspection, full ROM - Respiratory Respiratory exam: Present: normal lung sounds bilaterally, chest wall tenderness (Left lateral tenderness to the rib. No bruising, flail chest, deformity or crepitus noted.). Absent: respiratory distress, wheezes, rales, rhonchi - Cardiovascular Cardiovascular Exam: Present: regular rate, normal rhythm, normal heart sounds - GI/Abdominal GI/Abdominal exam: Present: soft. Absent: distended, tenderness, guarding, rebound - Extremities Exam Extremities exam: Present: other (Tenderness to palpation to M TP joint of right great toe but no bruising, swelling, deformity and she has full flexion exten donald of the toe.) - Expanded Upper Extremity Exam Left Shoulder Exam: Present: normal inspection, full ROM, tenderness (Mild tenderness palpation to the anterior aspect of the right shoulder.), tenderness over AC joint (Mild). Absent: swelling, abrasion, laceration, ecchymosis, deformity, crepidus, dislocation, erythema Elbow exam: Present: tenderness (Posterior elbow). Absent: full ROM (Range of motion chronically reduced secondary to her history of left-sided paralysis), swelling, abrasion, laceration, ecchymosis, deformity, crepidus, dislocation, erythema, effusion Vascular: Present: normal capillary refill. Absent: vascular compromise - Back Exam Back exam: Present: full ROM. Absent: tenderness - Neurological Exam Neurological exam: Present: alert, oriented X3 - Expanded Neurological Exam Expanded Best Eye Response (Tibbie): (4) open spontaneously Best Motor Response (Munira): (6) obeys commands Best Verbal Response (Munira): (5) oriented Tibbie Total: 15 - Psychiatric Psychiatric exam: Present: normal affect, normal mood - Skin Skin exam: Present: intact ED Course Vital Signs 10/20/20 14:40 Temperature 98.2 F Pulse Rate 86 Respiratory 18 Rate Blood Pressure 165/117 [Right] O2 Sat by Pulse 99 Oximetry ED Medical Decision Making - Radiology Data Radiology results: report reviewed Patient: JORGE LUIS MOYA MR#: [id number] 458 : 1970 Acct:[id number] Age/Sex: 50 / F ADM Date: 10/20/20 Loc: ED Attending Dr: Ordering Physician: MARIA ELENA MENDOZA Date of Service: 10/20/20 Procedure(s): XR elbow 2V LT Accession Number(s): [id number] cc: MARIA ELENA MENDOZA Fluoro Time In Minutes: XR elbow 2V LT INDICATION / CLINICAL INFORMATION: Fall down steps elbow pain. COMPARISON: None available. FINDINGS: No acute fracture. Normal alignment. Joint spaces are preserved. No destructive osseous lesion or suspicious periosteal reaction. Impression: 1.No acute fracture. Signer Name: Yonathan Soria MD Signed: 10/20/2020 4:22 PM Workstation Name: [id number] Transcribed By: CS Dictated By: Yonathan Soria MD Electronically Authenticated By: Yonathan Soria MD Signed Date/Time: 10/20/201621 DD/ 18 TD/TT: Patient: JORGE LUIS MOYA MR#: [id number] 458 : 1970 Acct:[id number] Age/Sex: 50 / F ADM Date: 10/20/20 Loc: ED Attending Dr: Ordering Physician: MARIA ELENA MENDOZA Date of Service: 10/20/20 Procedure(s): XR ribs UNI w PA chest 3+V LT Accession Number(s): [id number] cc: MARIA ELENA HAYESMLEY Fluoro Time In Minutes: XR ribs UNI w PA chest 3+V LT INDICATION / CLINICAL INFORMATION: Fall down steps/ left rib pain COMPARISON: 08/09/2020 FINDINGS: SUPPORT DEVICES: None. HEART / MEDIASTINUM: No significant abnormality. LUNGS / PLEURA: Lungs are clear. Costophrenic sulci are sharp. No pneumothorax. RIBS: Remote left temporal fracture. No acute rib fracture identified. Additional findings: Elevated left diaphragm, unchanged. IMPRESSION: 1. No acute rib fracture. Signer Name: Yonathan Soria MD Signed: 10/20/2020 4:18 PM Workstation Name: [id number] Transcribed By: CS Dictated By: Yoanthan Soria MD Electronically Authenticated By: Yonathan Soria MD Signed Date/Time: 10/20/201617 DD/ 16 TD/TT: Patient: JORGE LUIS MOYA MR#: [id number] 458 : 1970 Acct:[id number] Age/Sex: 50 / F ADM Date: 10/20/20 Loc: ED Attending Dr: Ordering Physician: MARIA ELENA MENDOZA Date of Service: 10/20/20 Procedure(s): XR shoulder 2+V LT Accession Number(s): [id number] cc: MARIA ELENA HAYESMLEY Fluoro Time In Minutes: XR shoulder 2+V LT INDICATION / CLINICAL INFORMATION: Shoulder pain/fall down steps. COMPARISON: None available. FINDINGS: No acute fracture. Normal alignment. Joint spaces are preserved. No destructive osseous lesion or suspicious periosteal reaction. Impression: 1.No acute fracture. Signer Name: Yonathan Soria MD Signed: 10/20/2020 4:19 PM Workstation Name: [id number] Transcribed By: CS Dictated By: Yonathan Soria MD Electronically Authenticated By: Yonathan Soria MD Signed Date/Time: 10/20/201618 DD/ 17 TD/TT: Patient: JORGE LUIS MOYA MR#: [id number] 458 : 1970 Acct:[id number] Age/Sex: 50 / F ADM Date: 10/20/20 Loc: ED Attending Dr: Ordering Physician: MARIA ELENA MENDOZA Date of Service: 10/20/20 Procedure(s): XR toe(s) 2+V RT Accession Number(s): [id number] cc: MARIA ELENA MENDOZA Fluoro Time In Minutes: XR toe(s) 2+V RT INDICATION / CLINICAL INFORMATION: toe pain s/p fall. COMPARISON: None available. FINDINGS: No acute fracture. Normal alignment. Joint spaces are preserved. No destructive osseous lesion or suspicious periosteal reaction. Impression: 1.No acute fracture. Signer Name: Yonathan Soria MD Signed: 10/20/2020 4:18 PM Workstation Name: [id number] Transcribed By: Dictated By: Yonathan Soria MD Electronically Authenticated By: Yonathan Soria MD Signed Date/Time: 10/20/201617 DD/ 17 TD/TT: - Medical Decision Making X-ray shows nothing acute. Suspect contusion at this time. Patient has a GCS of 15, with no new neurological deficits except her paralysis from her previous stroke. No additional imaging, work-up, admission or transfer indicated at this time. Gay x-ray results and suspected diagnosis and treatment plan with patient. Patient expressed understanding of all instructions and agree with plan. Patient stable at time of discharge. Critical care attestation.: If time is entered above; I have spent that time in minutes in the direct care of this critically ill patient, excluding procedure time. ED Disposition Clinical Impression: Contusion of rib on left side, Shoulder contusion, Elbow contusion, Toe contusion Disposition: HOME / SELF CARE / HOMELESS Is pt being admited?: No Does the pt Need Aspirin: No Condition: Stable Instructions: Contusion, [id number], Rib Contusion Additional Instructions: Recommend I take the baclofen as prescribed. Take the Tylenol as prescribed to help with any pain. Follow-up closely with your primary care doctor on Friday as scheduled. Return to the ER if your symptoms changes or worsens in any way. Prescriptions: Acetaminophen [Acetaminophen 8 Hour] 650 mg PO Q8HR #30 tablet.er Baclofen 5 mg PO TID #20 tablet Referrals: PRIMARY CARE, [Primary Care Provider] - 3-5 Days Time of Disposition: 17:01
--- NOTE | 2020-10-20 16:22 | XRay Report ---
XR ribs UNI w PA chest 3+V LT INDICATION / CLINICAL INFORMATION: Fall down steps/ left rib pain COMPARISON: 08/09/2020 FINDINGS: SUPPORT DEVICES: None. HEART / MEDIASTINUM: No significant abnormality. LUNGS / PLEURA: Lungs are clear. Costophrenic sulci are sharp. No pneumothorax. RIBS: Remote left temporal fracture. No acute rib fracture identified. Additional findings: Elevated left diaphragm, unchanged. IMPRESSION: 1. No acute rib fracture. Signer Name: Yonathan Soria MD Signed: 10/20/2020 4:18 PM Workstation Name: [id number]
--- NOTE | 2020-10-20 16:23 | XRay Report ---
XR toe(s) 2+V RT INDICATION / CLINICAL INFORMATION: toe pain s/p fall. COMPARISON: None available. FINDINGS: No acute fracture. Normal alignment. Joint spaces are preserved. No destructive osseous lesion or s uspicious periosteal reaction. Impression: 1.No acute fracture. Signer Name: Yonathan Soria MD Signed: 10/20/2020 4:18 PM Workstation Name: [email or web address]
--- NOTE | 2020-10-20 16:23 | XRay Report ---
XR shoulder 2+V LT INDICATION / CLINICAL INFORMATION: Shoulder pain/fall down steps. COMPARISON: None available. FINDINGS: No acute fracture. Normal alignment. Joint spaces are preserved. No destructive osseous lesion or s uspicious periosteal reaction. Impression: 1.No acute fracture. Signer Name: Yonathan Soria MD Signed: 10/20/2020 4:19 PM Workstation Name: [email or web address]
--- NOTE | 2020-10-20 16:26 | XRay Report ---
XR elbow 2V LT INDICATION / CLINICAL INFORMATION: Fall down steps elbow pain. COMPARISON: None available. FINDINGS: No acute fracture. Normal alignment. Joint spaces are preserved. No destructive osseous lesion or s uspicious periosteal reaction. Impression: 1.No acute fracture. Signer Name: Yonathan Soria MD Signed: 10/20/2020 4:22 PM Workstation Name: [id number]
== END 2020-10-20 17:00 | disposition home or self-care (01) ==
LOC: ED 13:00
DX: S20.212A Contusion of left front wall of thorax, initial encounter (principal); S40.012A Contusion of left shoulder, initial encounter; S50.02XA Contusion of left elbow, initial encounter; S90.121A Contusion of right lesser toe(s) without damage to nail, initial encounter; I10 Essential (primary) hypertension; I63.9 Cerebral infarction, unspecified; K21.9 Gastro-esophageal reflux disease without esophagitis; F17.200 Nicotine dependence, unspecified, uncomplicated; W19.XXXA Unspecified fall, initial encounter; Y93.01 Activity, walking, marching and hiking; Y92.89 Other specified places as the place of occurrence of the external cause; Y99.8 Other external cause status
CPT/HCPCS: 99283

== ENCOUNTER 2020-10-22 19:48 | Emergency (ER) | payer MEDICARE ==
--- NOTE | 2020-10-23 02:37 | XRay Report ---
RIGHT ANKLE 3 VIEW(S) INDICATION / CLINICAL INFORMATION: fall pain COMPARISON: None available. FINDINGS: BONES / JOINT(S): No acute fracture or subluxation. Mild degenerative arthrosis tibiotalar joint SOFT TISSUES: No significant abnormality. ADDITIONAL FINDINGS: Nonbridging heterotopic ossification distal syndesmosis from previous high ankle sprain. Signer Name: Popeye Donis MD Signed: 10/23/2020 2:33 AM Workstation Name: [id number]
--- NOTE | 2020-10-23 02:41 | XRay Report ---
CERVICAL SPINE 4 VIEWS INDICATION / CLINICAL INFORMATION: fall. And COMPARISON: None available. FINDINGS: VERTEBRAE: No fracture. No significant malalignment. 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 ADDITIONAL FINDINGS: None. IMPRESSION: 1. No significant abnormality. Signer Name: Popeye Donis MD Signed: 10/23/2020 2:36 AM Workstation Name: [id number]
--- NOTE | 2020-10-23 03:09 | Emergency Department Report ---
ED Fall HPI - General Chief Complaint: Fall Stated Complaint: RT ANKLE PAIN Time Seen by Provider: 10/23/20 01:53 Source: patient, EMS Mode of arrival: Ambulatory - History of Present Illness Complaint: fall -: Sudden Fall From: down stairs (#) When Fall Occurred: unsure Fall Witnessed: no Place Fall Occurred: home Loss of Consciousness: none Prolonged Down Time?: no Symptoms Prior to Fall: none Location: other (Ankle shoulder and buttocks region) Severity: mild Quality: dull, aching Context: tripped/slipped Associated Symptoms: denies: headache, numbness, shortness of breath, abdominal pain, lightheaded, vertigo, confusion - Related Data Home Medications Medication Instructions Recorded Confirmed Last Taken Aspirin BABY CHEW TAB 81 mg PO DAILY 06/15/15 06/15/15 08/21/15 Levothyroxine 1 tab PO DAILY 06/15/15 06/15/15 08/21/15 Lexapro 1 tab PO DAILY 06/15/15 06/15/15 08/21/15 Lisinopril 1 tab PO DAILY 06/15/15 06/15/15 08/22/15 05:00 Lyrica 1 tab PO DAILY 06/15/15 06/15/15 08/21/15 Pravastatin 1 tab PO DAILY 06/15/15 06/15/15 08/21/15 Xanax TAB 1 tab PO DAILY 06/15/15 06/15/15 08/21/15 Wellbutrin SR 150 mg PO BID 08/22/15 08/22/15 08/21/15 Previous Rx's Medication Instructions Recorded Last Taken Type Diclofenac Dr [Navin Gandhi] 75 mg PO BID #40 tablet 04/04/20 Unknown Rx traMADoL [Ultram 50 MG tab] 50 mg PO Q6HR PRN #12 tablet 06/16/20 Unknown Rx Acetaminophen [Acetaminophen 8 650 mg PO Q8HR #30 tablet.er 10/20/20 Unknown Rx Hour] Baclofen 5 mg PO TID #20 tablet 10/20/20 Unknown Rx Ketorolac [Toradol] 10 mg PO Q6H PRN #14 tablet 10/23/20 Unknown Rx Allergies Allergy/AdvReac Type Severity Reaction Status Date / Time No Known Allergies Allergy Verified 06/15/15 07:34 ED Review of Systems ROS: Stated complaint: RT ANKLE PAIN Other details as noted in HPI Comment: All other systems reviewed and negative ED Past Medical Hx - Past Medical History Previous Medical History?: Yes Hx Hypertension: Yes Hx CVA: Yes (left sided deficit) Hx GERD: Yes - Surgical History Past Surgical History?: No - Social History Smoking Status: Current Every Day Smoker - Medications Home Medications: Home Medications Medication Instructions Recorded Confirmed Last Taken Type Aspirin BABY CHEW TAB 81 mg PO DAILY 06/15/15 06/15/15 08/21/15 History Levothyroxine 1 tab PO DAILY 06/15/15 06/15/15 08/21/15 History Lexapro 1 tab PO DAILY 06/15/15 06/15/15 08/21/15 History Lisinopril 1 tab PO DAILY 06/15/15 06/15/15 08/22/15 05:00 History Lyrica 1 tab PO DAILY 06/15/15 06/15/15 08/21/15 History Pravastatin 1 tab PO DAILY 06/15/15 06/15/15 08/21/15 History Xanax TAB 1 tab PO DAILY 06/15/15 06/15/15 08/21/15 History Wellbutrin SR 150 mg PO BID 08/22/15 08/22/15 08/21/[address] [Navin Gandhi] 75 mg PO BID #40 tablet 04/04/20 Unknown Rx traMADoL [Ultram 50 MG tab] 50 mg PO Q6HR PRN #12 tablet 06/16/20 Unknown Rx Acetaminophen [Acetaminophen 8 650 mg PO Q8HR #30 tablet.er 10/20/20 Unknown Rx Hour] Baclofen 5 mg PO TID #20 tablet 10/20/20 Unknown Rx Ketorolac [Toradol] 10 mg PO Q6H PRN #14 tablet 10/23/20 Unknown Rx ED Physical Exam - General Limitations: No Limitations General appearance: alert, in no apparent distress - Head Head exam: Present: atraumatic, normocephalic - Eye Eye exam: Present: normal appearance, PERRL - ENT ENT exam: Present: normal exam, normal orophraynx, mucous membranes moist - Neck Neck exam: Present: normal inspection - Respiratory Respiratory exam: Present: normal lung sounds bilaterally. Absent: respiratory distress - Cardiovascular Cardiovascular Exam: Present: regular rate, normal rhythm. Absent: systolic murmur, diastolic murmur, rubs, gallop - GI/Abdominal GI/Abdominal exam: Present: soft, normal bowel sounds - Extremities Exam Extremities exam: Present: normal inspection, tenderness (To the ankle area with palpation. In the drawer test is negative pulses 2+ cap refill is brisk no significant deformity she is able to partially bear weight), other (Pain to the shoulder with palpation no sulcus sign. Some discomfort with Neer's test and Luther's test. No bruising is noted. No crepitus) - Back Exam Back exam: Present: normal inspection - Neurological Exam Neurological exam: Present: alert, oriented X3 - Psychiatric Psychiatric exam: Present: normal affect, normal mood - Skin Skin exam: Present: warm, dry, intact, normal color. Absent: rash ED Course Vital Signs 10/23/20 10/23/20 00:02 03:48 Temperature 97.6 F 98.2 F Pulse Rate 68 68 Respiratory 20 16 Rate Blood Pressure 135/96 Blood Pressure 122/65 [Left] O2 Sat by Pulse 100 100 Oximetry Critical care attestation.: If time is entered above; I have spent that time in minutes in the direct care of this critically ill patient, excluding procedure time. ED Disposition Clinical Impression: Shoulder contusion, Fall down stairs, Ankle strain Disposition: HOME / SELF CARE / HOMELESS Is pt being admited?: No Does the pt Need Aspirin: No Condition: Stable Instructions: How to Use a Stirrup Ankle Brace, [id number], Elastic Bandage and RICE Therapy, Contusion, [id number], How to Use Cold Therapy, Fall Prevention in the Home, Adult, How to Use a Stirrup Ankle Brace Prescriptions: Ketorolac [Toradol] 10 mg PO Q6H PRN #14 tablet PRN Reason: Pain Referrals: [facility] [Provider Group] - 3-5 Days SRINATH AVLENTE MD [Staff Physician] - 3-5 Days
[2020-10-23 03:49] VITALS: BP 122/65
== END 2020-10-23 03:51 | disposition home or self-care (01) ==
LOC: ED 19:48
DX: M25.571 Pain in right ankle and joints of right foot (principal); I10 Essential (primary) hypertension; F17.200 Nicotine dependence, unspecified, uncomplicated
CPT/HCPCS: 72040; 99283